=== PATIENT | male | born 1970 | race Caucasian/White ===

== ENCOUNTER 2016-07-16 06:15 | Day surgery (SDC) | payer OTHER ==
[2016-07-11 16:47] VITALS: BMI 29.5
[2016-07-16] MEDS ORDERED: methylPREDNISolone ACET (DEPO) 40 MG/1 ML VIAL ONE (07:10)
[2016-07-16] MEDS ORDERED: BUPIVACAINE HCL/PF 2.5 MG/ML - 30 ML VIAL IJ ONE ×2 (07:10→07:11)
[2016-07-16] MEDS ORDERED: LIDOCAINE 1%-EPI 1:100,000 30 ML MDV IJ ONE (07:10)
[2016-07-16] MEDS ORDERED: THROMBIN (BOVINE) 5,000 UNIT VIAL TP ONE ×2 (07:10→09:21)
[2016-07-16] MEDS ORDERED: oxyCODONE HCL 10 MG SUSTAINED ACTING TABLET PO STA (07:12)
--- NOTE | 2016-07-16 07:21 | HP ---
History & Physical Update - History History: No Change - Physical Physical: No Change - Assessment Assessment: No Change - Plan Plan: No Change (46 yo M with hx back pain, lumbar radiculopathy, L5-S1 disc herniation presents for planned lumbar laminectomy on 07/16/[address] Nixon. There are no changes to the H&P present in the paper chart from 07/12/16. Patient states he has not been taking his Aspirin 81 mg.)
[2016-07-16] MEDS ORDERED: MIDAZOLAM HCL 2 MG/2 ML SINGLE DOSE VIAL ONE ×2 (07:52→09:21)
[2016-07-16] MEDS ORDERED: LIDOCAINE 1%/EPI 1:100000 (50 ML MULTI DOSE VIAL) INF ONE ×2 (08:55)
[2016-07-16] MEDS ORDERED: PROPOFOL 20 ML ONE (09:20)
[2016-07-16] MEDS ORDERED: methylPREDNISolone ACET (DEPO) 40 MG/1 ML VIAL IM ONE (09:58)
[2016-07-16] MEDS ORDERED: BUPIVACAINE HCL/PF 0.25% (2.5MG/ML) 10 ML VIAL IJ ONE (09:59)
[2016-07-16] MEDS ORDERED: GUM MASTIC/STORAX/MSAL/ALCOHOL 1 DRP DROPSBTL MC ONE (10:08)
--- NOTE | 2016-07-16 10:39 | OP ---
Operative Note - Note: Operative Date: 07/16/16 Pre-Operative Diagnosis: spinal stenosis, lumbar radiculopathy, L5-S1 disc herniation Operation: Lumbar laminectomy L5-S1, discectomy Post-Operative Diagnosis: Same as Pre-op Surgeon: Aris Nixon Site Manager: Deana Day Anesthesia: Spinal Estimated Blood Loss (mls): 20 Fluid Volume Replaced (mls): 700 Operative Report Dictated: Yes
--- NOTE | 2016-07-16 10:41 | SURG ---
Surgery Vp Of Product Note Vp Of Product: Deana Day PA-C Date of Service: 07/16/16 Diagnosis: spinal stenosis, lumbar radiculopathy, L5-S1 disc herniation Procedure: CPT code 22358 Lumbar laminectomy L5-S1, discectomy I was present for the entirety of the operative procedure. For further detail, please refer to operative report. Visit type - Case Type Case Type: Scheduled Admission - New patient This patient is new to me today: Yes Date on this admission: 07/16/16
[2016-07-16 12:23] VITALS: PULSE 78
[2016-07-16 13:26] VITALS: BP 135/81; TEMP 98.2
--- NOTE | 2016-07-16 22:44 | OP ---
DATE OF OPERATION: 07/16/2016 PREOPERATIVE DIAGNOSIS: L5-S1 spinal stenosis. POSTOPERATIVE DIAGNOSIS: L5-S1 spinal stenosis. PROCEDURE PERFORMED: Laminectomy, L5-S1. SURGEON: Aris Nixon M.D. 4TH GRADE TEACHER: CHERYL Lemos ESTIMATED BLOOD LOSS: 50 mL INTRAVENOUS FLUIDS: Per anesthesia. COMPLICATIONS: There were none. DISPOSITION: Patient brought to the PACU in stable condition. INDICATION FOR SURGERY: The patient is a 46-year-old gentleman who has been suffering from pain from his back down his legs. X-rays and MRI were completed, which noted he has spinal stenosis at L5-S1. He also had been noted to have significant weakness in his legs. At this point, I had a discussion with the patient regarding his weakness in the leg. I told him at this point I am concerned about neurological deficit. The patient has tried epidural injection, and after doing so he came back and we discussed risks and benefits of continued nonsurgical treatment versus surgical treatment. The patient consented to surgery. OPERATIVE NOTE: Patient is brought to the operating room by the operating room staff. After appropriate patient identification is performed, spinal anesthesia was given. The patient was placed prone onto the Ruslan frame with all areas of bony prominences well padded at this time. Two needles were placed into his back to surjit off the L5-S1 level, and x-ray is taken to confirm this is correct. Graham were removed, and 10 mL of lidocaine with epinephrine was injected into his back at this time. His back was prepped and draped in a sterile manner. At this point timeout was completed. An incision was made from the top of L5 down to the bottom of S1. Dissection was carried down to the fascia. Fascia was then split open at this time, and appropriate retractors were then placed in. Then a spinal needle was placed onto the L5 lamina to surjit off the L5-S1 level. An x-ray was taken to confirm this was correct. The needle was removed, and microscope was brought in. At this point, the interspinous ligament at the L5-S1 was removed. A portion of the L5-S1 lamina was removed, and portions of the segment was removed. The nerve roots were identified. A portion of the inferior-superior facets were removed to complete foraminotomy. The nerve root is mobilized medially. A disc herniation was noted, it was removed at this time. By the end of the procedure, both the S1 nerve roots appear to be well decompressed, and the thecal sac appeared to be well decompressed. All bleeding was well controlled at this time. Steroids were placed over the nerve root, Floseal was placed over that. The fascia was closed with a number 1 Vicryl suture. The subcutaneous tissue was closed with 2-0 Vicryl suture. Skin was closed with 3-0 Monocryl suture. Dermabond was applied. Steri-Strips were applied. Sterile dressing was applied. Patient was placed supine on OR bed, and brought to the PACU in stable condition. ARIS NIXON M.D. [id number] MTDD
--- NOTE | 2016-07-18 13:43 | PATH ---
Surgical Pathology Report Patient Name: JODI NOBLE [facility]. Rec. #: [id number] /Age/Gender: 1970 (Age: 46) / M Account: [id number] Location: [facility] Taken: 07/16/2016 Received: 07/16/2016 Reported: 07/18/2016 Physicians: Aris Nixon M.D. Specimen(s) Received DISC L5-S1 Clinical History Spinal stenosis Final Diagnosis DISC L5-S1, LAMINECTOMY: CARTILAGE WITH DEGENERATIVE CHANGES. Electronically Signed Marianne Fong M.D. Gross Description Received in formalin, labeled "disc L5-S1," is a 2.5 x 1.9 x 0.4 cm aggregate of clay fragments of fibrocartilaginous tissue. The formalin is filtered and the specimen is entirely submitted in one cassette. 07/16/201607/16/2016
== END 2016-07-16 13:20 | disposition home or self-care (01) ==
LOC: FASU 06:15
PROVIDERS: ATTEND Orthopaedic Surgery Orthopaedic Surgery of the Spine
PROC: 01NB0ZZ Release Lumbar Nerve, Open Approach (ICD-10-PCS; 2016-07-16)
PROC: 0SB20ZZ Excision of Lumbar Vertebral Disc, Open Approach (ICD-10-PCS; principal; 2016-07-16 08:15)
DX: M48.06 Spinal stenosis, lumbar region (principal)
CPT/HCPCS: 72100-TC; 76000-TC; 88304-TC; 94760